=== PATIENT | male | born 1960 | race Caucasian/White ===

== ENCOUNTER 2024-10-26 07:52 | Inpatient (IN) | payer MEDICARE, OTHER ==
[~2024-10-26] VITALS: Ht 170.2 cm; Wt 93.0 kg
[2024-10-26] MEDS ORDERED: FENTANYL PF 250MCG/5ML AMPUL ONE (09:51)
[2024-10-26] MEDS ORDERED: dexaMETHasone SOD PHOSPHATE 1 ML ONE (10:22)
[2024-10-26] MEDS ORDERED: VANCOMYCIN 1 GM VIAL ONE (10:22)
[2024-10-26] MEDS ORDERED: LIDOCAINE 2%-EPI 1:100,000 30 ML VIAL ONE (10:22)
[2024-10-26] MEDS ORDERED: LABETALOL HCL IV 100MG VIAL ONE (10:33)
[2024-10-26] MEDS ORDERED: ALBUTEROL FS 2.5 MG/0.5 ML VIAL.NEB ONE (11:51)
[2024-10-26 12:00] VITALS: BP 147/78; TEMP 97.5; O2SAT 98
[2024-10-26 12:15] VITALS: BP 140/80; TEMP 97.5; O2SAT 98
[2024-10-26 12:30] VITALS: BP 139/80; TEMP 98; O2SAT 97
[2024-10-26 13:00] VITALS: BP 135/82; TEMP 98; O2SAT 97
[2024-10-26] MEDS ORDERED: ONDANSETRON HCL/PF 4 MG/2 ML VIAL IVP PRN (14:00)
[2024-10-26] MEDS ORDERED: MORPHINE SULFATE INJ 2 MG/ML DISP.SYRIN IV PRN (14:00)
[2024-10-26] MEDS ORDERED: hydrALAZINE HCL IV 20 MG VIAL IV PRN (14:00)
[2024-10-26] MEDS ORDERED: IV NS 0.9% 1,000 ML IV PRN (15:30)
[2024-10-26] MEDS ORDERED: ACETAMINOPHEN 325 MG TABLET PO PRN (15:30)
[2024-10-26] MEDS ORDERED: HYDROMORPHONE 1 MG/1 ML DISP.SYRIN IV PRN (15:30)
[2024-10-26] MEDS ORDERED: ICOS1CAP PO (15:54)
[2024-10-26] MEDS ORDERED: ASPI-1420 PO (15:54)
[2024-10-26] MEDS ORDERED: LEVO150T94 PO (15:54)
[2024-10-26] MEDS ORDERED: OMEP40CA21 PO (15:54)
[2024-10-26] MEDS ORDERED: HYDR-4077 PO (15:54)
[2024-10-26] MEDS ORDERED: CARV6.252 PO (15:54)
[2024-10-26] MEDS ORDERED: ERGO500093 PO (15:54)
[2024-10-26] MEDS ORDERED: ATOR40TA PO (15:54)
[2024-10-26 16:00] VITALS: BP 144/83; TEMP 98.8; O2SAT 98
[2024-10-26] MEDS ORDERED: PANTOPRAZOLE 40 MG TABLET.DR PO PRN (19:30)
[2024-10-26] MEDS: VANCOMYCIN 1 GM in IV D5W 250ml IV SCH (21:25)
[2024-10-26 21:34] VITALS: BP 155/87; TEMP 98.2; O2SAT 96
[2024-10-26] MEDS: ATORVASTATIN 40 MG TABLET PO SCH (21:41)
[2024-10-27] MEDS: ALBUTEROL FS 2.5 MG/3 ML VIAL.NEB NEB SCH (03:30)
[2024-10-27 07:26] LABS: PLATELET COUNT (AUTO) 244 K/uL (150-450); RED BLOOD CELL COUNT(AUTO) 3.19 MIL/uL (4.5-6.0); RED CELL DISTRIBUTION WIDTH 14.5 % (11.5-15.0); WHITE BLOOD COUNT (AUTO) 9.7 K/uL (4.3-11.0)
[2024-10-27 07:30] VITALS: BP 143/84; TEMP 98.4; O2SAT 99
[2024-10-27 07:56] VITALS: O2SAT 96
[2024-10-27 07:59] LABS: ASPARTATE AMINOTRANSFERASE 28.0 U/L (15-37); CALCIUM, SERUM 9.3 mg/dL (8.5-10.1); CREATININE 1.2 mg/dL (0.6-1.3); PHOSPHORUS 3.8 mg/dL (2.5-4.9); SODIUM SERUM 138.0 mmol/L (136-145); TOTAL PROTEIN, SERUM 7.3 g/dL (6.4-8.2); UREA NITROGEN, BLOOD 20.0 mg/dL (7-18)
[2024-10-27 08:11] VITALS: O2SAT 98
[2024-10-27 08:59] VITALS: BP 143/84
[2024-10-27] MEDS: ASPIRIN EC 81 MG TABLET.DR PO SCH (08:59)
[2024-10-27] MEDS: LEVOTHYROXINE SODIUM 75 MCG TABLET PO SCH (08:59)
[2024-10-27] MEDS: CARVEDILOL 6.25 MG TABLET PO SCH (08:59)
[2024-10-27 10:55] VITALS: O2SAT 97
[2024-10-27 11:10] VITALS: O2SAT 98
[2024-10-27] MEDS ORDERED: LIDOCAINE 1%-EPI 1:100,000 20 ML VIAL ONE (14:39)
[2024-10-27] MEDS ORDERED: TDAP [DIPH/PERTUSSIS/TET] 0.5 ML VIAL IM ONE (14:39)
== END 2024-10-27 13:00 | disposition home or self-care (01) | DRG 142 ==
LOC: DS 07:52 → MED 12:29
PROVIDERS: ADMIT Internal Medicine; ATTEND Internal Medicine
PROC: 0NUV07Z Supplement Left Mandible with Autologous Tissue Substitute, Open Approach (ICD-10-PCS; principal; 2024-10-26 10:25)
PROC: 0NSV04Z Reposition Left Mandible with Internal Fixation Device, Open Approach (ICD-10-PCS; principal; 2024-10-26 10:25)
PROC: 0N5V0ZZ Destruction of Left Mandible, Open Approach (ICD-10-PCS; principal; 2024-10-26 10:25)
PROC: 0NST04Z Reposition Right Mandible with Internal Fixation Device, Open Approach (ICD-10-PCS; principal; 2024-10-26 10:25)
PROC: 0NBT0ZX Excision of Right Mandible, Open Approach, Diagnostic (ICD-10-PCS; principal; 2024-10-26 10:25)
PROC: 0NUT07Z Supplement Right Mandible with Autologous Tissue Substitute, Open Approach (ICD-10-PCS; principal; 2024-10-26 10:25)
DX: S02.609A Fracture of mandible, unspecified, initial encounter for closed fracture (principal); X58.XXXA Exposure to other specified factors, initial encounter; Y92.9 Unspecified place or not applicable; M27.2 Inflammatory conditions of jaws; D16.4 Benign neoplasm of bones of skull and face; E03.9 Hypothyroidism, unspecified; E78.5 Hyperlipidemia, unspecified; I10 Essential (primary) hypertension; I25.10 Atherosclerotic heart disease of native coronary artery without angina pectoris; Z87.891 Personal history of nicotine dependence; Z79.899 Other long term (current) drug therapy
CPT/HCPCS: 36415; 80053-TC; 83735-TC; 84100-TC; 85025-TC; 90715; 94799-TC; A4223; A4338; C1713; G0378; J1100; J2704; J3010; J3370; J3490; J7030; J7050; J7060